=== PATIENT | male | born 2000 | race African-American/Black ===

== ENCOUNTER 2018-12-01 16:37 | Emergency (ER) | payer OTHER ==
[2018-12-01] MEDS ORDERED: Tetracaine 0.5% OPHTH SOLN/PF 4 ML BOT ONE (18:20)
== END 2018-12-01 18:45 | disposition home or self-care (01) ==
LOC: MADERS 16:37
DX: H10.9 Unspecified conjunctivitis (principal)
CPT/HCPCS: 99282

== ENCOUNTER 2020-04-09 17:34 | Emergency (ER) | payer OTHER ==
[2020-04-09] MEDS ORDERED: Naproxen 500 MG TAB ONE (18:17)
== END 2020-04-09 18:33 | disposition home or self-care (01) ==
LOC: MADERS 17:34
DX: R51 Headache (principal); F17.290 Nicotine dependence, other tobacco product, uncomplicated
CPT/HCPCS: 99283